=== PATIENT | male | born 2000 | race Hispanic/Latino ===

== ENCOUNTER 2023-09-17 23:43 | Emergency (ER) | payer OTHER, SELFPAY ==
[2023-09-17 23:44] VITALS: BP 124/86; PULSE 117; RESP 20; TEMP 36.7; O2SAT 100; BMI 31.6
[2023-09-18 00:11] VITALS: PULSE 109; O2SAT 95
[2023-09-18 00:30] VITALS: PULSE 108; O2SAT 99
[2023-09-18 01:00] VITALS: PULSE 109; O2SAT 97
[2023-09-18 01:30] VITALS: BP 124/81; PULSE 107; RESP 26; O2SAT 97
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
[2023-09-18] MEDS: KETOROLAC 30 MG/ML VIAL IM (01:45)
[2023-09-18 02:20] VITALS: BP 140/63; PULSE 116; PULSE 87; RESP 16; RESP 17; O2SAT 100
== END 2023-09-18 02:29 | disposition home or self-care (01) ==
PROVIDERS: Emergency Provider Emergency Medicine
DX: S09.90XA Unspecified injury of head, initial encounter (principal); V89.2XXA Person injured in unspecified motor-vehicle accident, traffic, initial encounter
CPT/HCPCS: 70450; 96372; 99284; J1885

== ENCOUNTER 2024-06-22 17:50 | Emergency (ER) | payer SELFPAY ==
[2024-06-22 17:54] VITALS: BP 135/83; PULSE 100; RESP 16; TEMP 36.1; O2SAT 98; BMI 29.1
--- NOTE | 2024-06-22 18:26 | ED_ITS ---
HPI - GI Bleed General Chief complaint: GI Bleed Stated complaint: blood in stool Time Seen by Provider: 06/22/24 17:53 Source: patient Mode of arrival: Family Vehicle History of Present Illness HPI Narrative: Patient is a 23-year-old male who is here for evaluation of both bright red blood and what appears to be dark-colored stools. He states he was had symptoms like this off and on for the past 6 months. It seems to occur when he is constipated. He currently feels like he was constipated. No fevers. No vomiting blood. No problems with urinating. No prior abdominal surgeries. Family history of colon cancers. He does not take anti-inflammatories on a regular basis. Drinks alcohol 2 times a week. He denies any abdominal pain. No rectal pain with having bowel movements. Related Data Allergies Allergy/AdvReac Type Severity Reaction Status Date / Time No Known Drug Allergies Allergy Verified 06/22/24 17:59 Review of Systems Review of Systems ROS Unobtainable: All systems reviewed & are unremarkable except as noted in HPI and below Patient History Social History Smoking Status: Current every day smoker Smoking Status: Current every day smoker alcohol intake frequency: 0-2 drinks per day Alcohol type: beer Substance Use Type: marijuana Exam Initial Vital Signs Initial Vital Signs: Vital Signs Temperature 97.0 F L 06/22/24 17:54 Pulse Rate 100 H 06/22/24 17:54 Respiratory Rate 16 06/22/24 17:54 Blood Pressure 135/83 06/22/24 17:54 Pulse Oximetry 98 06/22/24 17:54 Oxygen Delivery Method Room Air 06/22/24 17:54 Const General: cooperative, comfortable and No ill appearing [facility] Head: normal to inspection and normocephalic Resp Effort & Inspection: normal respiratory effort Auscultation: clear to auscultation bilaterally Cardio Rate: regular rate GI Inspection: normal to inspection and non-distended Palpation: soft, No firm, No guarding and No tender Neuro General: patient alert, patient awake and moves all extremities Course Orders Ordered: ED Orders 06/22/24 18:47 Complete Blood Count AUTO DIFF Stat Comprehensive Metabolic Panel Stat Lipase Stat Vital Signs Vital signs: Vital Signs - 8 hr 06/22/24 17:54 06/22/24 19:19 Temperature 97.0 F L 98.6 F Pulse Rate 100 H 97 H Respiratory Rate 16 18 Blood Pressure 135/83 119/63 Pulse Oximetry 98 100 Oxygen Delivery Method Room Air Room Air MDM - GI Bleed Lab Data Attestation: I reviewed the patient's lab results. 06/22/24 18:47 06/22/24 18:47 Labs: Lab Results 06/22/24 Range/Units 18:47 WBC 12.1 H (4.5-11.0) X10^3/uL RBC 4.55 (4.5-5.9) X10^6/uL Hgb 13.8 (13.5-17.5) g/dL Hct 41.2 (41-53) % MCV 90.6 (80-100) fL MCH 30.4 (26-34) PG MCHC 33.6 (30-36) % RDW 13.7 (11.6-14.8) % Plt Count 283 (150-400) X10^3/uL Neut % (Auto) 57.5 (50-75) % Lymph % (Auto) 32.1 (25-40) % Patrick % (Auto) 9.2 (3-14) % Eos % (Auto) 0.9 L (2-4) % Baso % (Auto) 0.3 (0-2) % Neut # (Auto) 7000 (9040-8404) /uL Lymph # (Auto) 3900 (1671-1369) /uL Patrick # (Auto) 1100 H (0-900) /uL Eos # (Auto) 100 (0-450) /uL Baso # (Auto) 0 (0-100) /uL Sodium 139 (137-145) mmol/L Potassium 3.4 (3.4-5.1) mmol/L Chloride 105 (98-107) mmol/L Carbon Dioxide 25 (22-32) mmol/L BUN 11 (9-20) mg/dL Creatinine 0.75 (0.66-1.25) mg/dL Estimated GFR > 60 (>60) mL/min BUN/Creatinine Ratio 14.7 (6-22) Glucose 109 H (70-100) mg/dL Calcium 9.2 (8.4-10.2) mg/dL Total Bilirubin 0.8 (0.2-1.3) mg/dL AST 43 (17-59) IU/L ALT 71 H (<50) IU/L Alkaline Phosphatase 100 (38-126) U/L Total Protein 7.5 (6.3-8.2) g/dL Albumin 4.4 (3.5-5.0) g/dL Globulin 3.1 (1.7-4.1) g/dL Albumin/Globulin Ratio 1.4 (1.0-2.8) Lipase 63 (23-300) U/L MDM Narrative Medical decision making narrative: Well-appearing. Normal vital signs. Unremarkable labs. He states his symptoms have been off and on for the past 6 months and seemed to occur when he was feeling constipated. He currently is feeling constipated. There was no indication for blood transfusion. No indication for emergency surgical consultation however do feel that he would benefit from a follow-up with General surgery. Patient was given return precautions and follow-up instructions. He expressed understanding and agreement. Discharge Plan Departure Patient Disposition: Home Clinical Impression: Lower gastrointestinal hemorrhage Instructions: Gastrointestinal Bleeding Activity Restrictions/Additional Instructions: I do recommend that you either try laxatives or stool softeners in order to maintain normal daily bowel movements. Tomorrow contact the general surgery department with the number provided below for follow-up return to the emergency department for fevers, vomiting blood or abdominal discomfort. Referrals: Uzair Omer MD [Physician] - Stand Alone Forms: Patient Portal/API
[2024-06-22 18:54] LABS: Add Manual Diff / Slide Review NO; Basophils Absolute Auto 0 /uL (0-100); Basophils Percent Auto 0.3 % (0-2); Eosinophils Absolute Auto 100 /uL (0-450); Eosinophils Percent Auto 0.9 % (2-4); Hematocrit 41.2 % (41-53); Hemoglobin 13.8 g/dL (13.5-17.5); Lymphocytes Absolute Auto 3900 /uL (1100-4500); Lymphocytes Percent Auto 32.1 % (25-40); Mean Corpuscular HGB Conc 33.6 % (30-36); Mean Corpuscular Hemoglobin 30.4 PG (26-34); Mean Corpuscular Volume 90.6 fL (80-100); Monocytes Absolute Auto 1100 /uL (0-900); Monocytes Percent Auto 9.2 % (3-14); Neutrophils Absolute Auto 7000 /uL (1500-7000); Neutrophils Percent Auto 57.5 % (50-75); Platelet Count 283 X10^3/uL (150-400); Red Blood Cell Count 4.55 X10^6/uL (4.5-5.9); Red Cell Distribution Width 13.7 % (11.6-14.8); White Blood Cell Count 12.1 X10^3/uL (4.5-11.0)
[2024-06-22 19:03] LABS: Alanine Aminotransferase 71 IU/L (<50); Albumin 4.4 g/dL (3.5-5.0); Albumin Globulin Ratio 1.4 (1.0-2.8); Alkaline Phosphatase 100 U/L (38-126); Aspartate Aminotransferase 43 IU/L (17-59); BUN Creatinine Ratio 14.7 (6-22); Bilirubin Total 0.8 mg/dL (0.2-1.3); Blood Urea Nitrogen 11 mg/dL (9-20); Calcium 9.2 mg/dL (8.4-10.2); Carbon Dioxide 25 mmol/L (22-32); Chloride 105 mmol/L (98-107); Estimated Glomerular Filt Rate > 60 mL/min (>60); Globulin 3.1 g/dL (1.7-4.1); Glucose 109 mg/dL (70-100); HEMOLYSIS 33 (0-50); Lipase 63 U/L (23-300); Potassium 3.4 mmol/L (3.4-5.1); Sodium 139 mmol/L (137-145); Total Protein 7.5 g/dL (6.3-8.2)
[2024-06-22 19:19] VITALS: BP 119/63; PULSE 97; RESP 18; TEMP 37; O2SAT 100
== END 2024-06-22 19:19 | disposition home or self-care (01) ==
PROVIDERS: Emergency Provider Emergency Medicine
DX: K92.2 Gastrointestinal hemorrhage, unspecified (principal)
CPT/HCPCS: 36415; 80053; 83690; 85025; 99283